=== PATIENT | male | born 1995 | race Caucasian/White ===

== ENCOUNTER 2016-06-17 18:45 | Emergency (ER) | payer OTHER ==
[~2016-06-17] VITALS: Ht 175.3 cm; Wt 75.0 kg
[2016-06-17 18:54] VITALS: TEMP 97.8
[2016-06-17] MEDS ORDERED: ALLEGRA 60MG TA60 MG (19:00)
[2016-06-17 19:40] LABS: BASO % 0.4 % (0.0-2.0); EOS # 0.1 (0.0-0.7); EOS % 1.2 % (0-4.0); GRAN # 9.4 (1.4-6.5); GRAN % 84.9 % (42.2-75.2); HEMATOCRIT 48.8 % (36.0-47.0); HEMOGLOBIN 16.7 g/dl (12.5-16.1); LYMPH # 0.9 (1.2-3.4); LYMPH % 8.3 % (20.0-51.0); MEAN CELL VOLUME 87 fl (80.0-95.0); MEAN CORPUSCULAR HEMOGLOBIN 30 pg (26.0-32.0); MEAN CORPUSCULAR HGB CONC 34 g/dl (33.0-37.0); MEAN PLATELET VOLUME 10.1 fl (7.4-10.4); MONO # 0.5 (0.1-0.6); MONO % 4.9 % (1.7-9.3); PLATELET COUNT 211 K/mm3 (130-400); RED BLOOD COUNT 5.62 M/mm3 (4.20-5.60)
[2016-06-17 19:49] LABS: CREATININE, serum 0.95 mg/dL (0.66-1.25); POTASSIUM 3.9 mmol/L (3.4-5.0)
[2016-06-17] MEDS ORDERED: NORVASC 10MG10 MG PO (20:17)
[2016-06-17] MEDS ORDERED: TYLENOL W/COD1 UDTAB PO (20:17)
[2016-06-17 20:25] VITALS: BP 170/98; PULSE 82
== END 2016-06-17 20:34 | disposition home or self-care (01) ==
LOC: COL.ER 18:45
PROVIDERS: Emergency Medicine
DX: I10 Essential (primary) hypertension (principal); R51 Headache
CPT/HCPCS: J1885; J2765; J3010; J7040